=== PATIENT | female | born 1955 | race Caucasian/White ===

== ENCOUNTER 2017-05-28 08:40 | Inpatient (IN) | payer OTHER, BC ==
[2017-05-28] MEDS ORDERED: BABY ASPIRIN 81 MG CHEW ONE (09:19)
[2017-05-28] MEDS ORDERED: BABY ASPIRIN 81 MG CHEW PO ONE (09:25)
[2017-05-28] MEDS ORDERED: Zofran 4 MG/2 ML VIAL IV ONE (09:29)
[2017-05-28] MEDS ORDERED: MORPHINE SULFATE 4 MG INJ IV ONE (09:29)
[2017-05-28] MEDS ORDERED: MORPHINE SULFATE 4 MG INJ ONE (09:34)
[2017-05-28] MEDS ORDERED: Zofran 4 MG/2 ML VIAL ONE (09:34)
--- NOTE | 2017-05-28 09:35 | ERPHSYRPT ---
- History of Present Illness Time Seen by Provider: 05/28/17 09:30 Historian: patient Exam Limitations: no limitations Patient Subjective Stated Complaint: Pt states "I woke up at 0330 this morning with chest pain, difficutly breathing, and nausea. I vomited a couple of times , my back is killing me. I took a nitro and it did not help." Triage Nursing Assessment: Pt alert and oriented X 3, skin pwd. pt ambulates slowly, moaning, unable to get comfortable, speaks in two to three word sentences. Physician History: 61-year-old white female with history of COPD Arrives with complaint of waking up this morning at 3:30 AM she states she was having a pressure on her anterior lateral left chest shortness of breath nausea patient states she vomited several times she states she now has some right lower quadrant abdominal tenderness as well. She has no fevers no coughs. Past medical history includes COPD. Past surgical history includes tonsillectomy and arthroscopic surgery on her knee. Social history former smoker Timing/Duration: today (3:30 AM today) Activities at Onset: sleep Quality: pressure Location: other (left anterior chest, right lower quadrant) Chest Pain Radiation: back, abdomen Severity of Pain-Max: moderate Severity of Pain-Current: moderate Modifying Factors: Improves With: nitroglycerin (patient states she took a nitroglycerine prior to arrival) Associated Symptoms: nausea, vomiting, abdominal pain, shortness of breath, back pain, No palpitations, No heartburn, No cough, No hurts to breathe, No diaphoresis, No chills, No fever, No fatigue, No weakness, No swelling/lump in chest, No syncope, No rash, No headache, No dizziness Nitro Today/Relief: 0.4 mg x 1, provided at home Aspirin Treatment Today: 81 mg x 4, provided by ED Allergies/Adverse Reactions: No Known Drug Allergies Allergy (Unverified 05/28/17 09:10) Home Medications: Hctz/Triamteren 37.5 mg/25 mg* [Maxzide-25MG Tablet] 1 tab PO 05/28/17 [ History] Hx Tetanus, Diphtheria Vaccination/Date Given: No Hx Influenza Vaccination/Date Given: No Hx Pneumococcal Vaccination/Date Given: No Immunizations Up to Date: Yes - Review of Systems Constitutional: No Fever, No Chills Eyes: No Symptoms Ears, Nose, & Throat: No Symptoms Respiratory: Dyspnea, No Cough, No Cyanosis, No Dyspnea on Exertion (SIM), No Stridor, No Wheezing Cardiac: Chest Pain, No Edema, No Palpitations, No Syncope, No Orthopnea, No PND , No Other Abdominal/Gastrointestinal: Abdominal Pain (right lower quadrant abdominal pain) , Nausea, Vomiting, No Diarrhea, No Constipation, No Hematemesis, No Hematochezia, No Melena, No Dysphagia, No Appetite Changes Genitourinary Symptoms: No Dysuria Musculoskeletal: No Back Pain, No Neck Pain Skin: No Rash Neurological: No Dizziness, No Focal Weakness, No Sensory Changes Psychological: No Symptoms Endocrine: No Symptoms All Other Systems: Reviewed and Negative - Past Medical History Pertinent Past Medical History: Yes Neurological History: No Pertinent History ENT History: No Pertinent History Cardiac History: No Pertinent History Respiratory History: No Pertinent History Endocrine Medical History: No Pertinent History Musculoskeletal History: No Pertinent History GI Medical History: No Pertinent History History: No Pertinent History Psycho-Social History: No Pertinent History Female Reproductive Disorders: No Pertinent History - Past Surgical History Past Surgical History: Yes Neuro Surgical History: No Pertinent History Cardiac: No Pertinent History Respiratory: No Pertinent History Gastrointestinal: No Pertinent History Genitourinary: No Pertinent History Musculoskeletal: No Pertinent History Female Surgical History: No Pertinent History Other Surgical History: TONSILECTOMY - Social History Smoking Status: Former smoker How long have you smoked: 34 YEARS Exposure to second hand smoke: No Drug Use: none Patient Lives Alone: No - Female History Hx Last Menstrual Period: none Hx Now: No - Nursing Vital Signs Nursing Vital Signs: Initial Vital Signs Temperature 98.1 F 05/28/17 08:51 Pulse Rate 48 L 05/28/17 08:51 Respiratory Rate 24 05/28/17 08:51 Blood Pressure 134/75 05/28/17 08:51 O2 Sat by Pulse Oximetry 100 05/28/17 08:51 Pain Scale Pain Intensity 6 - Physical Exam General Appearance: no apparent distress, alert Eye Exam: PERRL/EOMI, eyes nml inspection Ears, Nose, Throat Exam: normal ENT inspection, moist mucous membranes Neck Exam: normal inspection, non-tender, supple, full range of motion Respiratory Exam: normal breath sounds, lungs clear, No respiratory distress Cardiovascular Exam: regular rate/rhythm, normal heart sounds Gastrointestinal/Abdomen Exam: soft, tenderness (suprapubic and right lower quadrant tendernersess), No mass Back Exam: normal inspection, No CVA tenderness, No vertebral tenderness Extremity Exam: normal inspection, normal range of motion Neurologic Exam: alert, oriented x 3, cooperative, normal mood/affect, sensation nml, No motor deficits Skin Exam: normal color, warm, dry SpO2 Interpretation: normal (100%) SpO2: 100 Oxygen Delivery: Room Air - Course Nursing assessment & vital signs reviewed: Yes EKG Interpreted by Me: RATE (48 BPM), NORMAL AXIS, Other (ekg, SINUS BRADYCARDIA , 48 BPM, NORMAL AXIS, NO ACUTE st OR t WAVE CHANGES NOTED) - Radiology Exams Chest X-ray Interpretation: Discussed w/ radiologist (STABLE NON ACUTE CHEST WITH CHRONIC FEATURES) Ordered Tests: Active Orders 24 hr Category Date Time Status Munitions Handler Supervisor STAT Care 05/28/17 09:26 Active EKG-ER Only STAT Care 05/28/17 09:25 Active IV Insertion STAT Care 05/28/17 09:25 Active CHEST 1 VIEW (PORTABLE) Stat Exams 05/28/17 09:26 Completed AMYLASE Routine Lab 05/28/17 09:30 Completed CBC W DIFF Stat Lab 05/28/17 09:40 Completed CMP Routine Lab 05/28/17 09:30 Completed D-DIMER QUANTITATION Stat Lab 05/28/17 09:40 Completed HCG QUALITATIVE,SERUM Stat Lab 05/28/17 Completed LIPASE Routine Lab 05/28/17 09:30 Completed PROTIME WITH INR Stat Lab 05/28/17 09:40 Completed PTT Stat Lab 05/28/17 09:40 Completed TROPONIN Q3H Lab 05/28/17 09:30 Completed TROPONIN Q3H Lab 05/28/17 12:30 Ordered TROPONIN Q3H Lab 05/28/17 15:30 Ordered TROPONIN Q3H Lab 05/28/17 18:30 Ordered TROPONIN Q3H Lab 05/28/17 21:30 Ordered UA W/RFX UR CULTURE Stat Lab 05/28/17 09:28 Ordered Medication Summary Discontinued Medications Generic Name Dose Route Start Last Admin Trade Name Freq PRN Reason Stop Dose Admin Aspirin Confirm 05/28/17 09:19 Baby Aspirin 81 Mg Chew Administered 05/28/17 09:20 Dose 81 mg .ROUTE .ST-MED ONE Aspirin 324 mg 05/28/17 09:25 05/28/17 09:34 Baby Aspirin 81 Mg Chew PO 05/28/17 09:26 324 mg STAT ONE Administration Morphine Sulfate 4 mg 05/28/17 09:29 05/28/17 09:34 Morphine Sulfate 4 Mg Inj IV 05/28/17 09:30 4 mg STAT ONE Administration Morphine Sulfate Confirm 05/28/17 09:34 Morphine Sulfate 4 Mg Inj Administered 05/28/17 09:35 Dose 4 mg .ROUTE .STK-MED ONE Ondansetron HCl 4 mg 05/28/17 09:29 05/28/17 09:34 Zofran 4 Mg/2 Ml Vial IV 05/28/17 09:30 4 mg STAT ONE Administration Ondansetron HCl Confirm 05/28/17 09:34 Zofran 4 Mg/2 Ml Vial Administered 05/28/17 09:35 Dose 4 mg .ROUTE .STK-MED ONE Lab/Rad Data: Laboratory Result Diagrams 05/28/17 09:40 05/28/17 09:30 Laboratory Results 05/28/17 05/28/17 05/28/17 Range/Units Unknown 09:40 09:40 WBC 11.8 H (4.0-10.5) K/mm3 RBC 4.32 (4.1-5.4) M/mm3 Hgb 13.1 (12.0-16.0) gm/dl Hct 39.4 (35-47) % MCV 91.2 (78-100) fl MCH 30.3 (26-32) pg MCHC 33.2 (32-36) g/dl RDW 13.9 (11.5-14.0) % Plt Count 298 (150-450) K/mm3 MPV 11.6 H (6-9.5) fl Gran % 83.9 H (36.0-66.0) % Lymphocytes % 13.0 L (24.0-44.0) % Monocytes % 2.6 (0.0-12.0) % Eosinophils % 0.3 (0.00-5.0) % Basophils % 0.2 (0.0-0.4) % Basophils # 0.02 (0-0.4) INR 0.99 (0.8-3.0) APTT 31.6 (25.3-37.0) SECONDS D-Dimer 465 (0-500) ng/mL Sodium (136-145) mEq/L Potassium (3.5-5.1) mEq/L Chloride (98-107) mEq/L Carbon Dioxide (21-32) mEq/L Anion Gap (5-15) MEQ/L BUN (9-20) mg/dL Creatinine (0.55-1.30) mg/dl Estimated GFR ML/MIN Glucose (70-110) MG/DL Calcium (8.5-10.1) mg/dL Total Bilirubin (0.2-1.0) mg/dL AST (15-37) U/L ALT (12-78) U/L Alkaline Phosphatase (46-116) U/L Troponin I (0.000-0.056) ng/ml Serum Total Protein (6.4-8.2) gm/dL Albumin (3.4-5.0) g/dL Amylase (25-115) U/L Lipase (73-393) U/L Serum , Qual NEGATIVE (Negative) 05/28/17 Range/Units 09:30 WBC (4.0-10.5) K/mm3 RBC (4.1-5.4) M/mm3 Hgb (12.0-16.0) gm/dl Hct (35-47) % MCV (78-100) fl MCH (26-32) pg MCHC (32-36) g/dl RDW (11.5-14.0) % Plt Count (150-450) K/mm3 MPV (6-9.5) fl Gran % (36.0-66.0) % Lymphocytes % (24.0-44.0) % Monocytes % (0.0-12.0) % Eosinophils % (0.00-5.0) % Basophils % (0.0-0.4) % Basophils # (0-0.4) INR (0.8-3.0) APTT (25.3-37.0) SECONDS D-Dimer (0-500) ng/mL Sodium 146 H (136-145) mEq/L Potassium 3.8 (3.5-5.1) mEq/L Chloride 109 H (98-107) mEq/L Carbon Dioxide 26.5 (21-32) mEq/L Anion Gap 14.4 (5-15) MEQ/L BUN 18 (9-20) mg/dL Creatinine 0.86 (0.55-1.30) mg/dl Estimated GFR > 60 ML/MIN Glucose 134 H (70-110) MG/DL Calcium 9.8 (8.5-10.1) mg/dL Total Bilirubin 0.60 (0.2-1.0) mg/dL AST 18 (15-37) U/L ALT 21 (12-78) U/L Alkaline Phosphatase 99 (46-116) U/L Troponin I < 0.017 (0.000-0.056) ng/ml Serum Total Protein 7.2 (6.4-8.2) gm/dL Albumin 3.8 (3.4-5.0) g/dL Amylase 58 (25-115) U/L Lipase 119 (73-393) U/L Serum , Qual (Negative) - Progress Progress: improved Air Movement: fair Progress Note: 05/28/17 09:35 Is a 61-year-old white female with history of COPD arrives with complaint of waking of this morning at 3:30 with complaint of a pressure on her left anterior chest pain in her right lower quadrant abdomen and pain in her chest that radiated to her back The patient's nurse states that the patient was rolling around on the bed with pain on my arrival patient really does not appear to be in acute distress she is alert oriented 3 she does state she has some left anterior chest pain as well as pain that radiates to her back and pain in her suprapubic and right lower quadrant of her abdomen. Patient appears to be breathing quite easily heart rate is regular vitals are stable. Patient took nitroglycerin at home without relief patient is given aspirin 325 mg here. Will write for morphine and Zofran. The initial EKG no acute ST or T wave changes are noted. Will obtain routine chest pain rule out labs, amylase lipase and urine 05/28/17 10:23 Patient is feeling better still has some minimal chest pain Patient wishes to stay at this hospital. Case is discussed with Dr. Stroud who is lubrication supervisor for Dr. Shahzad Lopez. Will place patient on observation telemetry chest pain Will obtain serial troponins. Provide aspirin daily and provide morphine for pain - Departure Time of Disposition: 10:24 Departure Disposition: Observation (OBSERVATION TELEMETRY DR. Stroud FOR DR. Lopez) Clinical Impression: Chest pain Qualifiers: Chest pain type: unspecified Qualified Code(s): R07.9 - Chest pain, unspecified Abdominal pain Qualifiers: Abdominal location: right lower quadrant Qualified Code(s): R10.31 - Right lower quadrant pain Condition: Fair Critical Care Time: No Referrals: CYNTHIA HARDIN [PODIATRY STAFF] -
[2017-05-28 09:43] LABS: BASOPHIL % 0.2 % (0.0-0.4); Eosinophil % 0.3 % (0.00-5.0); Granulocytes % 83.9 % (36.0-66.0); INR 0.99 (0.8-3.0); Mean Cell Volume 91.2 fl (78-100); Mean Corpuscular Hemoglobin 30.3 pg (26-32); Mean Platelet Volume 11.6 fl (6-9.5); Monocytes % 2.6 % (0.0-12.0); Platelet Count 298 K/mm3 (150-450); Red Blood Count 4.32 M/mm3 (4.1-5.4); Red Cell Distribution Width 13.9 % (11.5-14.0); White Blood Count 11.8 K/mm3 (4.0-10.5)
[2017-05-28 09:46] LABS: PTT 31.6 SECONDS (25.3-37.0)
--- NOTE | 2017-05-28 09:52 | XRAY ---
Indication: Chest pain. Comparison: August 26, 2010. Portable apical lordotic chest unchanged again demonstrating bibasilar discoid atelectasis/scarring and right base calcified granuloma. Remaining lungs clear. Heart is not enlarged. Vascularity normal. Bony thorax intact. Impression: Stable nonacute chest with chronic features.
[2017-05-28 10:03] LABS: ALBUMIN 3.8 g/dL (3.4-5.0); ALKALINE PHOSPHATASE 99 U/L (46-116); ANION GAP 14.4 MEQ/L (5-15); BLOOD UREA NITROGEN 18 mg/dL (9-20); CHLORIDE 109 mEq/L (98-107); Carbon Dioxide 26.5 mEq/L (21-32); Glucose 134 MG/DL (70-110); LIPASE 119 U/L (73-393); Potassium 3.8 mEq/L (3.5-5.1); SGOT/AST 18 U/L (15-37); SGPT/ALT 21 U/L (12-78); SODIUM 146 mEq/L (136-145); Total Protein 7.2 gm/dL (6.4-8.2)
[2017-05-28 10:05] LABS: TROPONIN < 0.017 ng/ml (0.000-0.056)
[2017-05-28] MEDS ORDERED: Zofran 4 MG/2 ML VIAL IV PRN (10:51)
[2017-05-28] MEDS: MORPHINE SULFATE 4 MG INJ IV PRN ×2 (11:22→16:28)
[2017-05-28] MEDS ORDERED: Ventolin Hfa MDI IH PRN (13:00)
[2017-05-28] MEDS ORDERED: PROVENTIL COMMON CANISTER IH PRN (13:02)
[2017-05-28] MEDS: Maxzide-25MG Tablet PO SCH (13:50)
[2017-05-28 15:45] LABS: Bilirubin NEGATIVE (NEGATIVE); COMPLETE URINE MICROSCOPIC? YES; Collection Type VOID; Glucose NEGATIVE (NEGATIVE); Leukocyte Esterase TRACE (NEGATIVE)
[2017-05-28 15:48] LABS: ADD URINE CULTURE? YES (NO); Bacteria FEW /HPF (NEGATIVE); Epithelial Cells MODERATE /HPF (FEW); Mucus MODERATE /HPF (NEGATIVE)
[2017-05-29 05:57] LABS: BASOPHIL % 0.2 % (0.0-0.4); Eosinophil % 0.8 % (0.00-5.0); Granulocytes % 75.4 % (36.0-66.0); Mean Cell Volume 92.4 fl (78-100); Mean Corpuscular Hemoglobin 30.4 pg (26-32); Mean Platelet Volume 11.4 fl (6-9.5); Monocytes % 6.6 % (0.0-12.0); Platelet Count 268 K/mm3 (150-450); Red Blood Count 4.47 M/mm3 (4.1-5.4); Red Cell Distribution Width 14.3 % (11.5-14.0); White Blood Count 10.4 K/mm3 (4.0-10.5)
[2017-05-29 06:14] LABS: ALBUMIN 3.6 g/dL (3.4-5.0); ALKALINE PHOSPHATASE 103 U/L (46-116); ANION GAP 12.1 MEQ/L (5-15); BLOOD UREA NITROGEN 10 mg/dL (9-20); CHLORIDE 105 mEq/L (98-107); Carbon Dioxide 28.6 mEq/L (21-32); Glucose 110 MG/DL (70-110); Potassium 3.4 mEq/L (3.5-5.1); SGOT/AST 14 U/L (15-37); SGPT/ALT 25 U/L (12-78); SODIUM 142 mEq/L (136-145); Total Protein 7.2 gm/dL (6.4-8.2)
[2017-05-29] MEDS: Zosyn 3.375GM/100 Ml D5W 3.375 GM/100 ML IVPB IV SCH ×4 (08:26→23:37)
--- NOTE | 2017-05-29 08:34 | XRAY ---
Indication: Chest tightness. Elevated d-dimer. Multiple contiguous axial images obtained through the chest using 80 cc Isovue 370 contrast and PE protocol. Comparison: None There is satisfactory opacification of the pulmonary arteries. No filling defect or pulmonary embolus. The heart is nonenlarged. No pathologic mediastinal/hilar lymphadenopathy. Small hiatal hernia. Examination of the lung parenchyma demonstrates moderate diffuse pulmonary emphysema, scattered fibrosis/scarring, bibasilar atelectasis, and right middle lobe calcified granulomas. No infiltrate or effusion. Bony thorax intact with minimal degenerative changes throughout the spine. CT abdomen reported separately. Impression: 1. Negative pulmonary embolus. 2. Pulmonary emphysema, fibrosis/scarring, atelectasis, and evidence for old granulomatous disease. 3. No acute cardiopulmonary abnormalities. 4. Incidental small hiatal hernia. CT DI 22.55
--- NOTE | 2017-05-29 08:38 | XRAY ---
Indication: Right upper quadrant abdominal pain. Vomiting. Multiple contiguous axial images obtained through the abdomen only prior to and following 80 cc Isovue 370 contrast. Comparison: CT renal stone study May 09, 2008. CT chest reported separately. Noncontrasted images of the abdomen demonstrates a few calcified splenic granulomas. No pathologic visceral calcifications. Gallbladder distended with tiny cholesterol gallstones as well as abnormal wall thickening and pericholecystic fluid favoring acute cholecystitis. Mild diffuse fatty liver. Postcontrast images demonstrates normal visceral enhancement and renal excretion. Remaining liver, pancreas, spleen, adrenal glands, kidneys, proximal ureters, and aorta appear unremarkable. No pathologic retroperitoneal lymphadenopathy. Osseous structures intact with minimal degenerative changes throughout the spine. Impression: 1. Abnormal gallbladder distention, cholesterol gallstones, wall thickening, and pericholecystic fluid favoring acute cholecystitis. 2. Fatty liver. CT DI 21.73
--- NOTE | 2017-05-29 08:41 | XRAY ---
Indication: Right upper quadrant pain. Gallstones. Two-dimensional right upper quadrant abdominal sonogram performed. Comparison: None Gallbladder normally distended with several tiny gallstones. Wall is abnormally thickened measuring 3.8 mm. No pericholecystic fluid. Common bile duct measures 4.9 mm. No intrahepatic biliary distention. Mild fatty echogenic liver without focal solid/cystic mass. No ascites. Remaining visualized pancreas and right kidney sonographically unremarkable. Right kidney measures 10.4 cm in length. Impression: 1. Gallstones with abnormal wall thickening favoring cholecystitis. 2. Fatty liver.
[2017-05-29] MEDS: ECOTRIN 81 MG PO SCH (10:08)
[2017-05-29] MEDS: Maxzide-25MG Tablet PO SCH (10:11)
[2017-05-29] MEDS: MORPHINE SULFATE 4 MG INJ IV PRN (12:13)
[2017-05-29] MEDS: D5W/0.45NS W/ 20mEq KCl 1000 ML 1,000 ML IV SCH ×2 (13:27→23:43)
[2017-05-30] MEDS: Zosyn 3.375GM/100 Ml D5W 3.375 GM/100 ML IVPB IV SCH ×4 (05:29→23:22)
[2017-05-30] MEDS ORDERED: Lactated Ringers 1,000 ML IV SCH (07:30)
[2017-05-30] MEDS ORDERED: Decadron 4 MG INJ IV ONE (08:00)
[2017-05-30] MEDS ORDERED: TORAdol 30 mg Injection IV ONE (08:00)
[2017-05-30] MEDS ORDERED: Zemuron 100 MG/10 ML IV ONE (08:00)
[2017-05-30] MEDS ORDERED: BRIDION 200MG/2ML IV ONE (08:00)
[2017-05-30] MEDS ORDERED: DIPRIVAN 200 MG/20 ML IV ONE (08:00)
[2017-05-30] MEDS ORDERED: SUBLIMAZE 100 MCG/2 ML IV ONE (08:00)
[2017-05-30] MEDS ORDERED: Zofran 4 MG/2 ML VIAL IV ONE (08:00)
[2017-05-30] MEDS ORDERED: MEFOXIN 2 GM PREMIX** 2 GM/50 ML ML IV SCH (09:00)
[2017-05-30] MEDS ORDERED: Sensorcaine 0.25% 10 ML ONE (09:22)
[2017-05-30] MEDS ORDERED: Lactated Ringers 1,000 ML IV ONE (09:22)
[2017-05-30] MEDS ORDERED: Zofran 4 MG/2 ML VIAL ONE (11:45)
[2017-05-30] MEDS ORDERED: DILAUDID 2 MG INJECTION ONE (11:45)
[2017-05-30] MEDS: Maxzide-25MG Tablet PO SCH (12:45)
[2017-05-30] MEDS: ECOTRIN 81 MG PO SCH (12:45)
[2017-05-30] MEDS ORDERED: MORPHINE SULFATE 2 MG INJ IV PRN (12:57)
[2017-05-30] MEDS ORDERED: TYLENOL 325 MG PO PRN (12:59)
[2017-05-30] MEDS ORDERED: FEVERALL 650 MG RC PRN (12:59)
[2017-05-30] MEDS ORDERED: D5W/0.45NS W/ 20mEq KCl 1000 ML 1,000 ML IV SCH (13:00)
[2017-05-30] MEDS ORDERED: Zofran 4 MG/2 ML VIAL IVIM PRN (13:00)
[2017-05-30] MEDS: MORPHINE SULFATE 4 MG INJ IV PRN ×2 (13:19→17:33)
[2017-05-30] MEDS: NORCO 5/325 MG PO PRN ×2 (13:59→23:28)
--- NOTE | 2017-05-30 15:35 | CONS ---
CONSULT DATE: 05/29/17 REASON FOR CONSULTATION: HISTORY OF PRESENT ILLNESS: 61 y/o WF seen and examined at the bedside. Major episode of right upper quadrant pain and nausea. CT scan revealing stones. Tender right upper quadrant. Has had no abdominal surgeries. Options discussed with her. She wished to proceed with surgical intervention. IMPRESSION: 1. ACUTE CHOLECYSTITIS/CHOLELITHIASIS. PLAN: Laparoscopic cholecystectomy.
--- NOTE | 2017-05-30 15:41 | OP ---
THIS REPORT WAS AMENDED ON 06/01/17. SURGERY DATE: 05/30/17 SURGERY TIME: 1034 PREOPERATIVE DIAGNOSIS: 1. ACUTE CHOLECYSTITIS/CHOLELITHIASIS. POSTOPERATIVE DIAGNOSIS: 1. ACUTE CHOLECYSTITIS/CHOLELITHIASIS. PROCEDURE: 1. Laparoscopic cholecystectomy. SURGEON: Ronaldo Hernandez M.D. ANESTHESIA: General endotracheal tube. COMPLICATIONS: None. CONDITION: Stable. DRAINS: One. INDICATION: Patient with acute cholecystitis/cholelithiasis. OPERATIVE PROCEDURE: Taken to surgery. General anesthetic. Routine prep and drape. Veress needle inserted. Opened to a pressure of 1. Insufflated to a pressure of 14. Two 10s. Two 5s. Good visualization. Acutely inflamed, large gallbladder with a very thick wall. It was aspirated. It was still large. Infundibulum dissected. Cystic duct triply Ligaclipped. Cystic artery triply Ligaclipped. Gallbladder rolled out of gallbladder fossa. It was necessary to enlarge the epigastric port site. It was removed in toto. There was no spillage. Field was dry. Drain was placed. CO2 was exsufflated. Hole closure device with two sutures in the epigastric port. Skin closed with jameson. Patient tolerated the procedure satisfactory.
[2017-05-30] MEDS: MEFOXIN 1 Gm/ D5W 50 Ml** 1 G/50 ML ML IV SCH (16:32)
[2017-05-31] MEDS: MEFOXIN 1 Gm/ D5W 50 Ml** 1 G/50 ML ML IV SCH ×2 (00:31→08:43)
[2017-05-31] MEDS: Zosyn 3.375GM/100 Ml D5W 3.375 GM/100 ML IVPB IV SCH ×2 (05:31→11:45)
[2017-05-31] MEDS: NORCO 5/325 MG PO PRN ×3 (05:45→15:34)
[2017-05-31 05:58] LABS: Mean Cell Volume 92.4 fl (78-100); Mean Corpuscular Hemoglobin 30.3 pg (26-32); Mean Platelet Volume 11.1 fl (6-9.5); Platelet Count 245 K/mm3 (150-450); Red Blood Count 4.33 M/mm3 (4.1-5.4); Red Cell Distribution Width 13.8 % (11.5-14.0); White Blood Count 13.2 K/mm3 (4.0-10.5)
[2017-05-31 06:12] LABS: ALBUMIN 3.1 g/dL (3.4-5.0); ALKALINE PHOSPHATASE 131 U/L (46-116); ANION GAP 10.6 MEQ/L (5-15); BLOOD UREA NITROGEN 8 mg/dL (9-20); CHLORIDE 104 mEq/L (98-107); Carbon Dioxide 30.6 mEq/L (21-32); Glucose 122 MG/DL (70-110); Potassium 3.6 mEq/L (3.5-5.1); SGOT/AST 59 U/L (15-37); SGPT/ALT 70 U/L (12-78); SODIUM 142 mEq/L (136-145); Total Protein 7.2 gm/dL (6.4-8.2)
[2017-05-31] MEDS: ECOTRIN 81 MG PO SCH (09:51)
[2017-05-31] MEDS: Maxzide-25MG Tablet PO SCH (09:51)
[2017-05-31] MEDS ORDERED: ENOXAPARIN SODIUM SQ SCH (10:00)
[2017-05-31 16:24] VITALS: BP 105/57; PULSE 70; O2SAT 90
--- NOTE | 2017-06-17 08:07 | HP ---
ADMISSION DIAGNOSIS: Symptomatic cholelithiasis. ANTICIPATED PROCEDURE: Cholecystectomy. HISTORY OF PRESENT ILLNESS: The patient has upper abdominal pain. Ultrasound positive. Seen and examined. Procedure discussed in detail and wished to proceed. PAST MEDICAL HISTORY: ALLERGIES: NONE. MEDICATIONS: Maxzide, Augmentin, [place]. PAST SURGICAL HISTORY: None recent. SOCIAL HISTORY: Abstains from tobacco since 2011. ETOH negative. FAMILY HISTORY: Congestive heart failure, CVA, renal failure REVIEW OF SYSTEMS: She has had problem with edema. PHYSICAL EXAMINATION: VITAL SIGNS: Normal. CHEST: Clear. COR: Regular. ABDOMEN: No palpable organomegaly or mass. LAB DATA AND TESTS: Ultrasound positive. IMPRESSION: Symptomatic cholelithiasis. PLAN: Laparoscopic cholecystectomy.
--- NOTE | 2017-06-17 08:13 | DS ---
ADMISSION DIAGNOSIS: Symptomatic cholelithiasis. DISCHARGE DIAGNOSIS: SYMPTOMATIC CHOLELITHIASIS. PROCEDURE: Laparoscopic cholecystectomy by Dr. Ronaldo Hernandez. HOSPITAL COURSE: The patient had abnormal gallbladder with distention, cholesterolosis, gallstones, wall thickening, paracolic fluid. She was taken to surgery. Cholecystectomy performed. Postoperatively resumed p.o. intake and basic bowel function and was able to be advanced to discharge. Discharged on her preadmission medications. Vicodin for pain. Given routine instructions.
== END 2017-05-31 16:45 | disposition home or self-care (01) | DRG 416 ==
LOC: ED 08:40 → OBSVTOIN 10:47 → MED SURG 10:47 → ICU 11:33 → MED SURG 05-29 13:28
PROVIDERS: ADMIT Family Medicine; ATTEND Family Medicine
PROC: 0FT40ZZ Resection of Gallbladder, Open Approach (ICD-10-PCS; principal; 2017-05-30)
DX: K80.00 Calculus of gallbladder with acute cholecystitis without obstruction (principal); R07.9 Chest pain, unspecified
CPT/HCPCS: 00790; 36000; 36415; 71010; 71260; 74170; 76705; 80053; 81000; 82150; 83690; 84484; 84703; 85025; 85027; 85379; 85610; 85730; 87086; 88304; 93005; 93041; 94760; 96374; 99285; J0694; J1100; J1170; J1650; J1885; J2270; J2405; J2543; J2704; J3010; Q3014; A9270-GY